=== PATIENT | female | born 2000 | race Two or more races ===

== ENCOUNTER → 2020-03-26 | Outpatient (CLI) | payer SELFPAY ==
--- NOTE | 2020-03-26 15:26 | RADIOLOGY REPORT (SQ) ---
EXAM DESCRIPTION: U/S OB 14+ TRNABD 1GES W/O DOP IMAGES COMPLETED DATE/TIME: 03/26/2020 2:29 pm REASON FOR STUDY: (Z34.90)ENCNTR FOR SUPRVSN OF NORMAL , UNSP, UNSP TRIMESTER Z34.90 ENCNT R FOR SUPRVSN OF NORMAL , UNSP, UNSP TR COMPARISON: None. TECHNIQUE: Static and Dynamic grayscale imaging performed of gravid uterus using transabdominal appr oach. Additional selected color Doppler and spectral images recorded. All stored on PACS. LIMITATIONS: None. FINDINGS: FETUSES SEEN:1 EGA: 26 weeks 2 days Calculated using BPD,FL,HC,AC documented on images. No discrepancy with clinic al dates. ART: 06/30/2020 EFW: 926 grams PERCENTILE: 42 LVP: 4.8 x 9.0 cm. PLACENTA: Right lateral GRADE: I PRESENTATION: Variable. ANATOMY: HEART RATE: 145 beats per minute. FOUR CHAMBER HEART: Visualized. THREE VESSEL CORD: Yes. CORD INSERTION: Visualized. KIDNEYS AND BLADDER: Visualized. Appear normal. STOMACH: Visualized. Appears normal. SPINE: Normal as visualized. BRAIN AND LATERAL VENTRICLES: Visualized. Appear normal. OTHER: No other significant finding. MATERNAL ADNEXA: Maternal ovaries not visualized. CERVICAL LENGTH: 3.1 cm. Closed. OTHER: No other significant finding. IMPRESSION: LIVING INTRAUTERINE . ESTIMATED GESTATIONAL AGE 26 weeks 2 days. NO VISUALIZED ANOMALIES. Trimester of : Second trimester - 13 weeks 1 day to 27 weeks 6 days. TECHNICAL DOCUMENTATION: JOB ID: [id number] [employer]- All Rights Reserved Reading location - IP/workstation name: [email or web address]
== END ==
LOC: RAD 13:45
PROVIDERS: ATTEND Midwife
DX: Z34.92 Encounter for supervision of normal pregnancy, unspecified, second trimester (principal); Z3A.27 27 weeks gestation of pregnancy
CPT/HCPCS: 76805